=== PATIENT | female | born 1955 | race Caucasian/White ===

== ENCOUNTER 2017-01-15 12:37 | Inpatient (IN) | payer MEDICARE ==
[~2017-01-15] VITALS: Ht 167.6 cm; Wt 86.8 kg
--- NOTE | ~2017-01-15 | ER ---
PATIENT'S NAME: [facility] AGE: 61 Y [address] ROOM: [place] [address] LOCATION: [facility] ADMIT DATE: 01/15/2017 ER/Outpatient Report DISCHARGE DATE: FAMILY PHYSICIAN: PHYSICIAN, UNKNOWN ATTENDING PHYSICIAN: Darryl FOUNTAIN Time of Arrival: 1237 hours. Time of Evaluation: 1237 hours. CHIEF COMPLAINT: Bucked off a horse. HISTORY OF PRESENT ILLNESS: The patient is a 61-year-old female who presents to the emergency department today with chief complaint of being bucked off a horse. It occurred just prior to arrival. She was at the [employer], working with a horse, horse was not familiar with her when she was bucked off. She reports that she lost her breath and she is having some back pain and some troubles breathing. She reports the pain is currently moderate in severity. She also complains of some left hip pain. Denies any fevers or chills. No nausea, vomiting, diarrhea, or constipation. She denies any loss of consciousness. PAST MEDICAL HISTORY: Hypertension, depression, heart failure. PAST SURGICAL HISTORY: Left hip surgery, left knee scope. 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 Denies any tobacco, alcohol, or illicit drug use. ALLERGIES: NO KNOWN DRUG ALLERGIES. MEDICATIONS: 1. Carvedilol. 2. Venlafaxine. 3. Spironolactone. 4. Omeprazole. 5. Atorvastatin. 6. Melatonin. REVIEW OF SYSTEMS: All systems are reviewed by myself and negative with the exception of those PATIENT'S NAME: [facility] AGE: 61 Y [address] ROOM: [address] [address] LOCATION: GICU ADMIT DATE: 01/15/2017 ER/Outpatient Report DISCHARGE DATE: FAMILY PHYSICIAN: PHYSICIAN, UNKNOWN ATTENDING PHYSICIAN: Darryl FOUNTAIN discussed in HPI and past medical history. PHYSICAL EXAMINATION: VITAL SIGNS: Blood pressure 118/66, pulse 80, respiratory rate 16, temperature 98.0, oxygen saturation 94% on room air. GENERAL: The patient is a 61-year-old female, appears stated age, in mild acute distress. HEENT. Head is normocephalic, atraumatic. Pupils are equal, round, and reactive to light. Oropharynx is clear. NECK: Supple. There is no step-offs or deformities. The patient is in cervical collar. CARDIOVASCULAR: Regular rate and rhythm. No murmurs, rubs, or gallops. LUNGS: Clear to auscultation bilaterally. No wheezes, rales, or rhonchi. ABDOMEN: Soft, nontender, and nondistended. No rebound, rigidity, or guarding. MUSCULOSKELETAL: The patient does have tenderness to palpation along the left lateral ribcage. She does have some mild diffuse tenderness to palpation on lateral left hip; however, she does have good range of motion. She is able move all 4 extremities. Sensation is intact. SKIN: Warm and dry. LABORATORY DATA AND X-RAYS: Labs and x-rays are obtained. CBC is unremarkable. CMP is unremarkable. CT scan of the head CT and L-spine are all negative. CT scan of the chest does show a left rib fractures at 2, 5, 6, 7, 8, 9, and 10. There is also a tiny pneumothorax on the left. There is also incidental low attenuation adrenal nodule. I have discussed all the CT imaging with the radiologist. IMPRESSION: 1. Multiple left-sided rib fractures at ribs 2, 5, 6, 7, 8, 9, and 10, status post fall from a horse. 2. Small left-sided pneumothorax. 3. Incidental adrenal nodule low-attenuation. 4. Initial visit. EMERGENCY DEPARTMENT COURSE: The patient brought back to the examination room. Seen and evaluated by myself. IV is established. Laboratory analysis and imaging are obtained as described above. The patient is given multiple doses of aliquots of fentanyl 50 mcg IV for pain. The results are obtained. I have discussed results with the patient. I have discussed the case with Dr. Fountain who is control clerk repairs for Trauma Surgery. He has seen and evaluated the patient. The patient will be admitted to the hospital for further evaluation, treatment, and management. DISPOSITION: PATIENT'S NAME: JUANITO ANTHONY [facility] AGE: 61 Y [address] ROOM: [address] [address] LOCATION: [facility] ADMIT DATE: 01/15/2017 ER/Outpatient Report DISCHARGE DATE: FAMILY PHYSICIAN: PHYSICIAN, UNKNOWN ATTENDING PHYSICIAN: Darryl FOUNTAIN The patient is admitted under care of Trauma Surgery and Dr. Fountain in stable condition. DO MADDIE TEJEDA/traciel /[id number] d: 01/16/17 1054 t: 01/16/17 1519, OUTPATIENT REPORT
--- NOTE | ~2017-01-15 | DS ---
PATIENT'S NAME: JUANITO ANTHONY [facility] AGE: 61 Y [address] [id number] [address] LOCATION: GICU ADMIT DATE: 01/15/2017 Discharge Summary DISCHARGE DATE: 01/18/2017 FAMILY PHYSICIAN: Matt Reina MD ATTENDING PHYSICIAN: Darryl Fountain DISCHARGE DIAGNOSES: 1. A 61-year-old female, bucked off a horse. 2. Multiple left rib fractures including #2 and 5 through 11. 3. A very minimal left pneumothorax. 4. Left pulmonary contusion. 5. A 2.3-cm low attenuation left adrenal nodule likely representing adrenal adenoma with a followup [address] scan recommended. 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 On January 15, the patient was thrown from a horse falling on her left side. She denied any loss of consciousness. She complained of left- sided chest wall pain. The patient was brought to [place] for evaluation where CT scans of the brain, cervical, thoracic, and lumbar spine along with a CT of the chest was completed. Injuries found are noted above. The patient was evaluated by Dr. Fountain, a [facility] general surgeon, and subsequently admitted to the Neurotrauma Unit. Activity was allowed as tolerated. Diet was advanced as tolerated. Pulmonary toiletry was encouraged. Lovenox was ordered for DVT prophylaxis. IV was hep-locked. Colace was started for bowel regimen along with p.r.n. milk of magnesia. Motrin, Percocet, and morphine were ordered for pain control. On post trauma day #1, vital signs were stable. The patient was very sore. She was utilizing IV morphine for breakthrough pain. Hemoglobin was 11.8. On post trauma day #2, the patient continued to have significant amount of pain, although was improving. She had waves of nausea. Vital signs were stable. Follow up chest x-rays had shown no evidence of pneumothorax. On post trauma day #3, the patient was awake, sitting up in the recliner. She had tolerated breakfast. She complained of being tired and sore, but overall looked very good. She did say that she was ready to go home. Temperature is 98.3, blood pressure 123/64, pulse 71, and respirations 14. Arrangements are being made for the patient to discharge home today. DISCHARGE INSTRUCTIONS: Include: No restrictions on diet. No restrictions on activity. She will follow up with her family physician, Dr. Matt Reina in 7 to 10 days. I did contact Dr. Reina's office and spoke with his nurse in regard to her injuries along with the finding of the adrenal nodule. The patient will plan to follow up with Dr. Reina in regard to repeat CT scan in 6 months to confirm stability of that nodule. I did discuss with the patient that if she would have increased shortness of breath, fever, and chest pain, etc, she needs to be seen by a physician as soon as possible with PATIENT'S NAME: JUANITO ANTHONY [facility] AGE: 61 Y [address] [id number] [address] LOCATION: [facility] ADMIT DATE: 01/15/2017 Discharge Summary DISCHARGE DATE: 01/18/2017 FAMILY PHYSICIAN: Matt Reina MD ATTENDING PHYSICIAN: Darryl Fountain concerns for pneumothorax versus pneumonia versus other. The patient voiced understanding with this. I also discussed the importance of keeping her bowels working. Discussed the increased risk for constipation with the narcotic pain medication along with immobility. DISCHARGE MEDICATIONS: Include continuing home medicines of: 1. Lipitor 10 mg p.o. at bedtime. 2. Coreg 12.5 mg p.o. q.a.m., 25 mg p.o. at bedtime. 3. Lasix 40 mg p.o. q.a.m. 4. Prilosec 20 mg p.o. q. day. 5. Aldactone 25 mg p.o. q.a.m. 6. Effexor 75 mg p.o. q.a.m. 7. Melatonin 9 mg p.o. at bedtime. 8. Additional medications included: Colace 100 mg p.o. twice daily which is [id number]. 9. Motrin 800 mg p.o. q.8 hours which again is [id number]. 10. A prescription was written for Percocet 5/325, 1 to 2 p.o. q.4 hours p.r.n. pain, dispensing 50 with no refills. 11. If additional pain medication is needed, she will need to follow up with Dr. Reina in regard to this. For specifics on day-to-day care, please refer to the hospital chart. Addendum: Patient decided she would rather go to [facility]. Arrangements were made accordingly and a provider to provider phone call was made. COURTNEY HOUSE PA-C FOR MD HARSHA BOYLEK/modl /[id number] CC: Matt Reina MD d: 01/18/17 2321 t: 02/02/17 1331, DISCHARGE SUMMARY
--- NOTE | ~2017-01-15 | HP ---
PATIENT'S NAME: RAJ [facility] AGE: 61 Y [address] 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 She underwent evaluation that identified multiple left-sided rib fractures and a small occult pneumothorax. Trauma Surgery was consulted for evaluation and likely inpatient admission. PAST MEDICAL HISTORY: Significant for hypertension, depression, heart failure. PAST SURGICAL HISTORY: Includes left hip surgery and left knee scope. MEDICATIONS: 1. Carvedilol. 2. Venlafaxine. 3. Spironolactone. 4. Omeprazole. 5. Carvedilol also in the evening. 6. Atorvastatin. 7. Melatonin. SOCIAL HISTORY: She is . 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 REVIEW OF SYSTEMS: She endorses mild shortness of breath and chest wall pain. She denies abdominal pain. She denies chest pain or palpitations. PHYSICAL EXAMINATION: VITAL SIGNS: She is a GCS 15. Her vitals are normal. GENERAL: She is alert and oriented. She is splinting to her left side and grimacing in some discomfort. Her speech is mildly breathy, and she is able to speak short sentences. HEENT: Shows anicteric sclerae. Midface stable. Oropharynx clear. PATIENT'S NAME: RAJ [facility] AGE: 61 Y [address] ROOM: [facility] [place], [place] [address] LOCATION: GICU ADMIT DATE: 01/15/2017 History & Physical DISCHARGE DATE: FAMILY PHYSICIAN: PHYSICIAN, UNKNOWN ATTENDING PHYSICIAN: Cleveland LOGAN NECK: Supple. LUNGS: She has bilateral breath sounds. She has some posterior left chest wall tenderness and bony crepitus. She does have evidence of an old left clavicle fracture that healed nonoperatively. ABDOMEN: Soft. She does have a tiny right subcostal incision consistent with prior cholecystectomy. Her pelvis is stable. EXTREMITIES: Normal. CT IMAGING: CT of the head was essentially normal. CT of the C, T, and L spine showed no acute injury. On her chest CT, she had ribs 2, 5, 6, 7, 8, 9, 10 posterior fractures. She did have a tiny associated pneumothorax and an incidental low attenuation adrenal nodule. IMPRESSION: 1. Multiple left-sided rib fractures status post fall from a horse. 2. Occult left-sided pneumothorax. 3. Incidental adrenal nodule. PLAN: For the patient will be to admit to the PCU for 1 to 2 days to optimize pain management in a 61-year-old patient with multiple rib fractures. We will repeat the chest x-ray tomorrow to rule out the unlikely potential of worsening pneumothorax. Of note, the patient will need a followup CT imaging of her incidental adrenal nodule. CLEVELAND LOGAN MD CM/santhosh /[id number] D: T: HISTORY & PHYSICAL
[2017-01-15 12:59] LABS: BASOPHIL % 0.7 %; EOSINOPHIL # 0.2 K/uL (0.0-0.5); EOSINOPHIL % 2.6 %; HEMATOCRIT 38.7 % (33.0-46.0); HEMOGLOBIN 13.1 g/dL (10.0-15.0); IMMATURE GRANULOCYTE # 0.1 K/uL (0.0-0.3); IMMATURE GRANULOCYTE % 1.6 %; LYMPHOCYTE # 1.2 K/uL (0.8-4.0); LYMPHOCYTE % 21.5 %; MCH 31.2 pg (27.0-34.0); MCHC 33.9 gm/dL (32.0-36.5); MCV 92.1 fl (83.0-98.0); MONOCYTE # 0.4 K/uL (0.0-1.0); MONOCYTE % 7.6 %; MPV 9.3 fl (9.4-12.4); NEUTROPHIL # (ANC) 3.8 K/uL (1.8-7.8); NRBC % 0 /100WBC (0-0.00); PLATELET COUNT 287 K/uL (150-450); RDW-CV 12.9 % (11.9-14.6); WBC 5.8 K/uL (4.0-11.0)
[2017-01-15 13:16] LABS: ALBUMIN 3.5 gm/dL (3.5-5.0); ANION GAP 11.5 (10.0-19.0); CALCIUM 8.6 mg/dL (8.5-10.5); CREATININE 0.9 mg/dL (0.5-1.1); POTASSIUM 3.5 mMol/L (3.7-5.1); TOTAL BILIRUBIN 0.3 mg/dL (0.0-1.5); TOTAL PROTEIN 6.8 g/dL (6.0-8.4)
--- NOTE | 2017-01-15 17:15 | NUR ---
PATIENT IS 61 YEAR OLD FEMALE WHO WAS IN A HORSE SHOW AT THE [employer] [place]. WHEN THE HORSE FUNES HER OFF. PATIENT BROUGHT TO ER. HAD RIB FX ON LEFT SIDE (2ND, 5TH, 6TH, 7TH, 8TH, 9TH, 10TH, AND 11TH) SMALL PNEUMOTHORAX. AAOX3. CLEAR LUNG SOUNDS ON RA . I.S IN ROOM MAX WAS 1500 TO BE MONITOR EVERY 12 HOURS. VS EVERY 2 HOURS X 12. LOVENOX STARTED. CLEAR LIQUID ADV TOLERATED. PT TOOK SHOWER SOON SHE ARRIVED DUE TO BEING COVERED IN DIRT AND SAND. PERCOCET GIVEN FOR PAIN. UP 2A. SHORT DISTANCES.
[2017-01-16 05:18] LABS: BASOPHIL % 0.2 %; EOSINOPHIL # 0.1 K/uL (0.0-0.5); EOSINOPHIL % 1.4 %; HEMATOCRIT 35.9 % (33.0-46.0); HEMOGLOBIN 11.8 g/dL (10.0-15.0); IMMATURE GRANULOCYTE % 0.2 %; LYMPHOCYTE # 1.4 K/uL (0.8-4.0); LYMPHOCYTE % 16.5 %; MCH 30.9 pg (27.0-34.0); MCHC 32.9 gm/dL (32.0-36.5); MONOCYTE # 0.7 K/uL (0.0-1.0); MONOCYTE % 8.1 %; MPV 9.5 fl (9.4-12.4); NEUTROPHIL # (ANC) 6.1 K/uL (1.8-7.8); NEUTROPHIL % 73.6 %; NRBC % 0 /100WBC (0-0.00); RBC 3.82 M/uL (3.50-5.50); RDW-CV 13.1 % (11.9-14.6); WBC 8.3 K/uL (4.0-11.0)
[2017-01-16 05:19] LABS: PLATELET COUNT 227 K/uL (150-450)
--- NOTE | 2017-01-16 05:25 | NUR ---
Significant Event: Patient A/O x 3. Denies N/T. Pain to left flank and sternum area due to rib fxs. Morphine and Percocet last given at 0420. Pain is tolerable at this time, rating pain at a 2-3. 2 L of 02 applied to keep sats >92%. Hypotensive with SBPs 100s, patient states is normal for her. Afebrile. Self administered IS with max at 1500. Pivoted to bedside commode x 2 times. Once pain under control did well. Voids per BSC. No bm this shift. Follow up:Pain management. Encourage IS and movement.
[2017-01-16] MEDS ORDERED: LASIX40 MG PO (11:20)
[2017-01-16] MEDS ORDERED: COREG25 MG PO (11:21)
[2017-01-16] MEDS ORDERED: COREG12.5 MG PO (11:21)
[2017-01-16] MEDS ORDERED: LIPITOR10 MG PO (11:21)
[2017-01-16] MEDS ORDERED: PRILOSEC20 MG PO (11:22)
[2017-01-16] MEDS ORDERED: EFFEXOR75 MG PO (11:22)
[2017-01-16] MEDS ORDERED: ALDACTONE25 MG PO (11:23)
[2017-01-16] MEDS ORDERED: MELATONIN3 MG PO (11:23)
--- NOTE | 2017-01-16 16:21 | NUR ---
Significant Event: Patient alert and oriented. Denies numbness or tingling. Equal strength bilat. Hypotensive, all other VSS on 1L of O2. Sats drop when she starts to fall asleep. Lungs clear. IS max volume reached 2000. No bowel movement but BS active and passing gas. Void X3. Regular diet. Scratches to L) hand. Ecchymosis to L) hip. R) hand saline lock. Morphine x1, Percocet x1. Ice to hip/shoulder. Transfers 1A GB/walker. Cooperative with cares. Follow up:
--- NOTE | 2017-01-16 17:45 | NUR ---
01/16/17: LIZANDRO ADAM RN HAS READ/REVIEWED ZOE MARKS RN'S CHARTING AND AGREES.
--- NOTE | 2017-01-17 03:37 | NUR ---
Shift Summary: PATIENT A&Ox3. DENIES N/T AND HEADACHE. SBP 97-104. LUNGS CLEAR. CONTINUES ON 1L NC. BOWEL SOUNDS ACTIVE. BRUISE ON L) HIP WITH 1+ EDEMA PRESENT. COMPLAINS OF L) SHOULDER PAIN. TRACE EDEMA ON LEFT SHOULDER NOTED. IS MAX 2000. VOIDS PER RESTROOM. 1 ASSIST WITH WALKER. STATES THAT PAIN IS NOT PRESENT WHEN RESTING, ONLY WHEN MOVING. PERCOCET GIVEN X2 LAST TIME AT 0200. R) HAND SALINE LOCKED. ICE TO HIP/STERNUM/SHOULDER THROUGHOUT NIGHT. Follow Up: PAIN CONTROL AND CONTINUE TO WORK WITH PT/OT
[2017-01-17 06:26] LABS: BASOPHIL % 0.4 %; EOSINOPHIL # 0.3 K/uL (0.0-0.5); EOSINOPHIL % 5.1 %; HEMATOCRIT 32.5 % (33.0-46.0); HEMOGLOBIN 10.6 g/dL (10.0-15.0); IMMATURE GRANULOCYTE % 0.7 %; LYMPHOCYTE # 1.1 K/uL (0.8-4.0); LYMPHOCYTE % 19.9 %; MCH 31.3 pg (27.0-34.0); MCHC 32.6 gm/dL (32.0-36.5); MCV 95.9 fl (83.0-98.0); MONOCYTE # 0.5 K/uL (0.0-1.0); MONOCYTE % 9.6 %; MPV 9.6 fl (9.4-12.4); NEUTROPHIL # (ANC) 3.6 K/uL (1.8-7.8); NEUTROPHIL % 64.3 %; NRBC % 0 /100WBC (0-0.00); PLATELET COUNT 186 K/uL (150-450); RBC 3.39 M/uL (3.50-5.50); WBC 5.5 K/uL (4.0-11.0)
[2017-01-17 06:37] LABS: BLOOD UREA NITROGEN 12 mg/dL (6-24); CALCIUM 8.4 mg/dL (8.5-10.5); CHLORIDE 107 mMol/L (96-110); CO2 29 mMol/L (22-32); CREATININE 0.7 mg/dL (0.5-1.1); PHOSPHORUS 3.2 mg/dL (2.5-4.9); SODIUM 141 mMol/L (135-145)
--- NOTE | 2017-01-17 15:05 | NUR ---
Introduced self and CM role to Estela. Estela tells me that she lives in [place], [place] with her S/O, Daryn at baseline. It is her ultimate goal to return there when she is able to do so. She thinks that when she leaves [facility], she would like to go to a [facility] for a short skilled stay and for pain management. Prefers that she go to [facility]. Her PCP is Dr.Jay Reina, which is at [facility] in [place], [place]. She prefers [facility] as it is closer to [place] and she doesn't have a preference on which MD follows while she is at the [facility]. Estela has a FWW at home to use when she gets there if she needs it. Prior to admission, she was managing her own medications and plans to continue to do so when she goes home. Let her know that I would call over to [facility] to see if they had any female beds open for a Monday admission and then update her after that. She was fine with this plan. I phoned over to [facility], , talked with Shawanda. She states that they do have openings, but I would need to talk more about that with Maria Del Rosario Vogel or Chelo, both of who were out of the office for a meeting at the time of my call. She did give me permission to go ahead and fax over a referral to them at [phone]. Referral was faxed over to them this afternoon and I have not yet heard if they can accept Estela or not. JOSÉ MANUEL Campos did call over to and while she was on the phone I asked her to let him know we were looking into [facility] for Estela. He states he is fine with this plan. I later got a call back from Dov at [facility], direct phone #, she tells me that she would like a copy of her insurance cards to make sure that no prior auth is needed before she would come to them. Did go ahead and fax that over to her at [phone]. Dov says that her team will review this tomorrow morning and then get back to on if they can take or not. They could do a same day admission if the team were to accept Estela to [facility]. MD to MD will need to be done prior to here dismissing. RN to RN would need to be done as well. CM to continue to follow and assist.
--- NOTE | 2017-01-17 16:28 | NUR ---
Significant Event: A/Ox3. Denies N/T. Moderate, equal strength. SBPs in 100s-110s. Heart rate in 60s-70s. Afebrile. Lungs clear and diminished on room air. Trace edema to lower extremities. Bowel sounds Active. Pain to left hip and left shoulder. Started giving percocet 1 tab Q2 hour. Motrin scheduled BID. Up 1 assist gait belt/walker. Regular diet. Zofran given x1 for nausea with scant emesis. Order for no IV access. Follow up: Home and/or swing bed tomorrow
--- NOTE | 2017-01-18 03:14 | NUR ---
Significant Event: A/Ox3. Hypotensive 100-120 SBP and other VSS. 1L O2 NC at hs. Ambulates 1A with walker and gait belt. Percocet for pain 1 tab prn given throughout the night. Pain located in ribs and left hip. Denies nausea. Follow up: Plan for swingbed
--- NOTE | 2017-01-18 09:40 | NUR ---
Significant Event: A/O X 3. Pain to left side/shoulder/hip from rib fxs/trauma. denies numbness/tingling. lung sounds clear. one liter of oxygen last night. room air today. up with supervision. takes meds whole. regular diet. PRN percocet and scheduled Motrin for pain management. Plan- home vs. swing bed today.
--- NOTE | 2017-01-18 11:46 | NUR ---
Dismissal orders were completed by ABNER Gutierrez and rounded later to make sure everything was done. MD to MD was called in by Alfredo. accepted, . RN to RN to be called in by Quynh before Estela leaves, number is on the front of the chart for Quynh. [phone] RN #. Packet started. Orders have been faxed over to [facility] prior to Estela leaving. S/O is here to transport her to the [facility]. was up here to talk with Estela and S/O about going to [facility] as Estela had voiced earlier that "he just wanted me to go home and get back to how things were, but I don't really want to do that." Explained to her that it was her choice to go to the [facility] and her S/O should really support that. After talking with , Estela decided that she would go to [facility]. to continue to follow and assist.
== END 2017-01-18 12:18 | disposition swing bed (61) | DRG 184 ==
LOC: GACC 12:37 → GICU 14:14
PROVIDERS: Emergency Medicine; Physician Assistant; ADMIT Surgery
DX: S22.42XA Multiple fractures of ribs, left side, initial encounter for closed fracture (principal); J93.9 Pneumothorax, unspecified; S27.321A Contusion of lung, unilateral, initial encounter; V80.010A Animal-rider injured by fall from or being thrown from horse in noncollision accident, initial encounter; E27.9 Disorder of adrenal gland, unspecified
CPT/HCPCS: J1650; J2001; J2270; J2405; J3010; Q0162

== ENCOUNTER → 2017-01-15 | Outpatient (CLI) | payer MEDICARE, OTHER ==
[~2017-01-15] MED LIST: ALDACTONE25 MG PO; COREG12.5 MG PO; COREG25 MG PO; EFFEXOR75 MG PO; LASIX40 MG PO; LIPITOR10 MG PO; MELATONIN3 MG PO; PRILOSEC20 MG PO
== END | disposition disaster alternative care site (69) ==
LOC: GAMB 12:14
DX: S39.92XA Unspecified injury of lower back, initial encounter (principal); M54.6 Pain in thoracic spine; M54.9 Dorsalgia, unspecified; R07.81 Pleurodynia; Z79.899 Other long term (current) drug therapy; Z95.0 Presence of cardiac pacemaker; W55.89XA Other contact with other mammals, initial encounter
CPT/HCPCS: A0425; A0427; J3010; Q9967